=== PATIENT | male | born 1980 | race Caucasian/White ===

== ENCOUNTER 2017-05-31 07:47 | Emergency (ER) | payer BC ==
[2017-05-31] MEDS ORDERED: Penicillin G Benzathine/Procaine 600-600 1.2 Millunits/2 ML Syringe IM ONE (08:14)
--- NOTE | 2017-05-31 08:14 | EDM.PDOC ---
ED HPI GENERAL MEDICAL PROBLEM - General Stated Complaint: ? STREP THROAT Time Seen by Provider: 05/31/17 08:05 Source of Information: Reports: Patient History Limitations: Reports: No Limitations - History of Present Illness INITIAL COMMENTS - FREE TEXT/NARRATIVE: This 36 yo male patient reports to the ED with a sore throat that started (05/28/17) and has continued to get worse. The patient reports he started a Z-pack on Thursday (took medications Thursday and Thursday with no improvement). The patient reports his symptoms have gotten to the point that he is unable to eat or drink anything at this time. The patient reports no known allergies. Onset Date: 05/28/17 Duration: Constant, Getting Worse Location: Reports: Neck (left side worse than right) Quality: Reports: Ache, Dull Severity: Moderate Improves with: Reports: None Worsens with: Reports: None Treatments ALUMINIZER: Reports: Other Medication(s) (Z-pack) Left Face Pain Score (Numeric/FACES): 8 - Related Data Allergies Allergy/AdvReac Type Severity Reaction Status Date / Time No Known Allergies Allergy Verified 05/31/17 07:58 Home Meds: Home Meds . [No Known Home Meds] 05/31/17 [History] Past Medical History Musculoskeletal History: Reports: Fracture - Infectious Disease History Infectious Disease History: Reports: Chicken Pox Social & Family History - Tobacco Use Smoking Status *Q: Never Smoker Second Hand Smoke Exposure: No - Caffeine Use Caffeine Use: Reports: None - Alcohol Use Days Per Week of Alcohol Use: 2 Number of Drinks Per Day: 5 Total Drinks Per Week: 10 - Recreational Drug Use Recreational Drug Use: No ED ROS ENT - Review of Systems Review Of Systems: ROS reveals no pertinent complaints other than HPI. ED EXAM, ENT - Physical Exam Exam: See Below Exam Limited By: No Limitations General Appearance: Alert, WD/WN, Moderate Distress Eye Exam: Bilateral Eye: EOMI, Normal Inspection, PERRL Ears: Normal External Exam, TM Obscured by Cerumen (left) Nose: Normal Inspection, Normal Mucousa, No Blood Mouth/Throat: Pharyngeal Erythema, Tonsillar Swelling (left greater than right) Head: Atraumatic, Normocephalic Neck: Supple, Full Range of Motion, Lymphadenopathy (L) Respiratory/Chest: No Respiratory Distress, Lungs Clear, Normal Breath Sounds, No Accessory Muscle Use, Chest Non-Tender Cardiovascular: Normal Peripheral Pulses, Regular Rate, Rhythm, No Edema, No Gallop, No JVD, No Murmur, No Rub GI/Abdominal: Normal Bowel Sounds, Soft, Non-Tender, No Organomegaly, No Distention, No Abnormal Bruit, No Mass (Male) Exam: Deferred Rectal (Males) Exam: Deferred Neurological: Alert, Oriented, CN II-XII Intact, Normal Cognition, Normal Gait Psychiatric: Normal Affect, Normal Mood Skin: Warm, Dry, Intact, Normal Color, No Rash Course - Vital Signs Last Recorded V/S: Last Vital Signs Temp 37.0 C 05/31/17 07:58 Pulse 93 05/31/17 07:58 Resp 20 05/31/17 07:58 BP 131/79 05/31/17 07:58 Pulse Ox 96 05/31/17 07:58 - Orders/Labs/Meds Orders: Active Orders 24 hr Category Date Time Status INFLUENZA A+B AG SCREEN [RM] Stat Lab 05/31/17 07:56 Uncollected Meds: Medications Discontinued Medications Generic Name Dose Route Start Last Admin Trade Name Willyq PRN Reason Stop Dose Admin Penicillin G Procaine/Benzathine 1.2 millunits 05/31/17 08:14 Bicillin C-R 600/600 IM 05/31/17 08:15 ONETIME ONE Departure - Departure Time of Disposition: 08:20 Disposition: Home, Self-Care 01 Condition: Fair Clinical Impression: Strep pharyngitis - Discharge Information Instructions: Strep Throat, [id number] Care Plan Goals: The patient was advised of the examination and lab results during the visit. The patient was given an injection of Bicillin while in the ED. The patient was encouraged to finish the Z-pack as previously prescribed. If the patient has any additional symptoms or further concerns, the patient should follow-up with his primary care provider, an ear, nose and throat specialist or return to the ED. - My Orders Last 24 Hours: My Active Orders 05/31/17 07:56 INFLUENZA A+B AG SCREEN [RM] Stat - Assessment/Plan Last 24 Hours: My Active Orders 05/31/17 07:56 INFLUENZA A+B AG SCREEN [RM] Stat
== END 2017-05-31 08:38 | disposition home or self-care (01) ==
LOC: DL.ED 07:47
DX: J02.0 Streptococcal pharyngitis (principal)
CPT/HCPCS: 87430; 87804; 96372; 99283; J0558

== ENCOUNTER 2019-04-24 19:18 | Emergency (ER) | payer BC ==
[2019-04-24] MEDS ORDERED: Acetaminophen/oxyCODONE 325-5 MG Tab PO ONE (19:19)
[2019-04-24] MEDS ORDERED: fentaNYL 100 MCG/2 ML SDV IVPUSH ONE (19:22)
[2019-04-24] MEDS ORDERED: Ondansetron 4 MG/2 ML SDV IV ONE (19:22)
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
[2019-04-24] MEDS ORDERED: Acetaminophen/oxyCODONE 325-5 MG Tab ONE (20:29)
== END 2019-04-24 20:42 | disposition home or self-care (01) ==
LOC: DL.ED 19:18
DX: S76.192A Other specified injury of left quadriceps muscle, fascia and tendon, initial encounter (principal); X58.XXXA Exposure to other specified factors, initial encounter; Y93.67 Activity, basketball
CPT/HCPCS: 73562; 96374; 96375; 99283; A9270; J2405; J3010